=== PATIENT | female | born 1955 | race Caucasian/White ===

== ENCOUNTER 2021-04-22 13:31 | Outpatient (RCR) | payer MEDICAID, OTHER | END 2021-04-24 | LOC: M PT 13:31 | PROVIDERS: ATTEND Nurse Practitioner Family | DX: M25.511 Pain in right shoulder (principal) ==

== ENCOUNTER 2021-05-04 09:40 | Outpatient (RCR) | payer OTHER | END 2021-05-25 | LOC: M PT 09:40 | PROVIDERS: ATTEND Nurse Practitioner Family | DX: M25.511 Pain in right shoulder (principal); M25.512 Pain in left shoulder ==

== ENCOUNTER → 2021-05-06 | Outpatient (REF) | LOC: M LABSMTC 13:45 | PROVIDERS: ATTEND Pediatrics | DX: Z11.52 Encounter for screening for COVID-19 (principal); Z20.822 Contact with and (suspected) exposure to COVID-19 ==